=== PATIENT | male | born 1995 | race Caucasian/White ===

== ENCOUNTER 2020-05-14 17:11 | Emergency (ER) | payer MEDICAID ==
[~2020-05-14] VITALS: Ht 172.7 cm; Wt 92.1 kg
[2020-05-14 17:23] VITALS: BP 140/85; Ht 172.7 cm; Wt 92.1 kg
== END 2020-05-14 18:58 | disposition home or self-care (01) ==
LOC: ED 17:11
DX: L60.0 Ingrowing nail (principal)
CPT/HCPCS: J2001

== ENCOUNTER 2020-10-02 19:24 | Emergency (ER) | payer MEDICAID ==
[~2020-10-02] VITALS: Ht 160 cm; Wt 96.8 kg
[2020-10-02 19:26] VITALS: BP 155/96; Ht 160 cm; Wt 96.8 kg
[2020-10-02 19:55] LABS: PLATELET COUNT 267 x10^3mcL (152-348); RED CELL DISTRIBUTION WIDTH 13.4 % (12.1-16.2)
[2020-10-02 20:02] LABS: BASOPHIL % 2.1 % (0.2-1.5)
[2020-10-02 20:09] LABS: CALCIUM 8.8 mg/dL (8.5-10.1); CARBON DIOXIDE 28.1 mmol/L (21-32); CHLORIDE SERUM 104 mmol/L (98-107); CREATININE SERUM 1.1 mg/dL (0.7-1.3); GFR1 > 60 mL/min; GLUCOSE SERUM 165 mg/dL (74-106); SODIUM SERUM 140 mmol/L (136-145)
[2020-10-02 20:13] LABS: ALBUMIN 4.2 g/dL (3.4-5.0); ALKALINE PHOSPHATASE 167 U/L (46-116); BILIRUBIN TOTAL 0.4 mg/dL (0.20-1.00); LIPASE 117 IU/L (73-393); TOTAL PROTEIN, SERUM 7.9 g/dL (6.4-8.2)
[2020-10-02 21:34] LABS: rbc morphology (normal/abnorm) NORMAL (NORMAL)
[2020-10-02 22:01] LABS: ALT/SGPT 142 U/L (16-63); AST/SGOT 70 U/L (15-37)
== END 2020-10-02 21:59 | disposition home or self-care (01) ==
LOC: ED 19:24
DX: R10.13 Epigastric pain (principal); R30.0 Dysuria; R03.0 Elevated blood-pressure reading, without diagnosis of hypertension; R10.33 Periumbilical pain

== ENCOUNTER 2020-11-18 07:07 | Emergency (ER) | payer MEDICAID ==
[~2020-11-18] VITALS: Ht 167.6 cm; Wt 94.3 kg
[2020-11-18 07:22] VITALS: Ht 167.6 cm; Wt 94.3 kg
[2020-11-18 08:05] LABS: BASOPHIL % 0.8 % (0.2-1.5); PLATELET COUNT 221 x10^3mcL (152-348)
[2020-11-18 08:38] LABS: CALCIUM 9.3 mg/dL (8.5-10.1); CARBON DIOXIDE 27.1 mmol/L (21-32); CHLORIDE SERUM 101 mmol/L (98-107); CREATININE SERUM 0.8 mg/dL (0.7-1.3); GFR1 > 60 mL/min; GLUCOSE SERUM 105 mg/dL (74-106); POTASSIUM SERUM 3.8 mmol/L (3.5-5.1); SODIUM SERUM 138 mmol/L (136-145)
[2020-11-18 08:42] LABS: ALBUMIN 3.9 g/dL (3.4-5.0); ALKALINE PHOSPHATASE 130 U/L (46-116); ALT/SGPT 85 U/L (16-63); AST/SGOT 37 U/L (15-37); BILIRUBIN TOTAL 0.7 mg/dL (0.20-1.00); LIPASE 98 IU/L (73-393); TOTAL PROTEIN, SERUM 7.5 g/dL (6.4-8.2)
[2020-11-18 09:28] VITALS: BP 132/78
== END 2020-11-18 09:28 | disposition home or self-care (01) ==
LOC: ED 07:07
PROVIDERS: Emergency Medicine
DX: I88.0 Nonspecific mesenteric lymphadenitis (principal); K63.89 Other specified diseases of intestine
CPT/HCPCS: J1885

== ENCOUNTER 2020-12-03 23:03 | Emergency (ER) | payer MEDICAID ==
[~2020-12-03] VITALS: Ht 167.6 cm; Wt 94.3 kg
[2020-12-03 23:18] VITALS: Ht 167.6 cm; Wt 94.3 kg
[2020-12-03] MEDS ORDERED: MOT600 PO (23:44)
[2020-12-04 00:08] VITALS: BP 128/86
== END 2020-12-04 00:09 | disposition home or self-care (01) ==
LOC: ED 23:03
DX: L60.0 Ingrowing nail (principal)
CPT/HCPCS: J2001